=== PATIENT | female | born 1960 | race Asian ===

== ENCOUNTER 2016-10-31 10:34 | Emergency (ER) | payer BC, OTHER ==
[~2016-10-31] VITALS: Ht 162.6 cm; Wt 54.4 kg
[2016-10-31 10:57] VITALS: BP 106/74
--- NOTE | 2016-10-31 10:57 | NUR ---
Patient ambulated to bed 5 with family. RN evaluating patient at bedside.
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
[2016-10-31] MEDS ORDERED: KETOROLAC 30 MG/ML VIAL IM ONE (11:15)
--- NOTE | 2016-10-31 11:20 | NUR ---
PT REFUSED TO TAKE TORADOL;ER NOTIFIED;TORADOL WAS WASTD AT [employer]
--- NOTE | 2016-10-31 11:29 | NUR ---
Patient taken to CT scan/XRAY by tech.
--- NOTE | 2016-10-31 12:08 | NUR ---
PT RESTING ON BED;NO ACUTE DISTRESS NOTED;WILL CONTINUE TO MONITOR PT.
[2016-10-31] MEDS ORDERED: NACL 0.9% 1,000 ML IV ONE (12:20)
--- NOTE | 2016-10-31 12:35 | NUR ---
PT AMBULATED TO THE RESTROOMACCOMPANIED BY HER FRIEND.
[2016-10-31 12:53] LABS: ANION GAP 11.8 (8-16); CALCIUM 8.5 mg/dL (8.5-10.1); CARBON DIOXIDE 27.9 mmol/L (21-32); CREATININE 0.6 mg/dL (0.6-1.3); POTASSIUM 3.7 mmol/L (3.5-5.1)
--- NOTE | 2016-10-31 12:55 | NUR ---
WENT TO CT SCAN ACCOMPANIED BY TECH.
--- NOTE | 2016-10-31 13:49 | NUR ---
PT RESTING ON BED;NO ACUTE DISTRESS NOTED;WILL CONTINUE TO MONITOR PT.
--- NOTE | 2016-10-31 14:26 | NUR ---
PT AMBULATED TO THE RESTROOM
--- NOTE | 2016-10-31 15:34 | NUR ---
PT RESTING ON BED;NO ACUTE DISTRESS NOTED;WILL CONTINUE TO MONITOR PT.
--- NOTE | 2016-10-31 16:11 | NUR ---
US AT BEDSIDE.
--- NOTE | 2016-10-31 16:19 | NUR ---
Dr. Soco Carson evaluating patient at bedside with Dr. Leavitt.
[2016-10-31 16:35] LABS: BASOPHILS # (AUTO) 0.2 K/uL (0.00-0.22); EOSINOPHILS # (AUTO) 0.2 K/uL (0-0.4); HEMATOCRIT 41.5 % (36-48); HEMOGLOBIN 13.6 g/dL (12.0-16.0); LYMPHOCYTES # (AUTO) 1.9 K/uL (2.5-16.5); MEAN CORPUSCULAR HEMOGLOBIN 29 pg (27-31); MEAN CORPUSCULAR HGB CONC 33 g/dL (33-37); MEAN CORPUSCULAR VOLUME 89 fL (80-94); MONOCYTES # (AUTO) 0.3 K/uL (0.8-1.0); NEUTROPHILS # (AUTO) 4.1 K/uL (1.8-7.7); PLATELET COUNT (AUTO) 194 K/uL (140-450); RED BLOOD CELL COUNT(AUTO) 4.68 MIL/uL (4.20-5.40); RED CELL DISTRIBUTION WIDTH 12.4 % (11.6-13.7); WHITE BLOOD COUNT (AUTO) 6.7 K/uL (4.8-10.8)
[2016-10-31 16:47] LABS: INR 0.9 (0.8-1.2); PARTIAL THROMBOPLASTIN TIME 26.4 secs (22-35.6); PROTHROMBIN TIME 9.3 secs (10.8-13.4)
--- NOTE | 2016-10-31 17:29 | NUR ---
Patient discharged with v/s stable. Written and verbal after care instructions given and explained. Patient alert, oriented and verbalized understanding of instructions. [g ED.DCMODE] with [g ED.D/CMODE]. All questions addressed prior to discharge. ID band removed. Patient advised to follow up with PMD. Rx of [] given. Patient educated on indication of medication including possible reaction and side effects. Opportunity to ask questions provided and answered.
[2016-10-31 17:30] VITALS: BP 127/68
== END 2016-10-31 17:29 | disposition home or self-care (01) ==
LOC: MED 10:34
DX: S16.1XXA Strain of muscle, fascia and tendon at neck level, initial encounter (principal); R51 Headache; V43.52XA Car driver injured in collision with other type car in traffic accident, initial encounter; Y93.I9 Activity, other involving external motion; Y92.488 Other paved roadways as the place of occurrence of the external cause; Y99.8 Other external cause status
CPT/HCPCS: 36415; 70450; 70491; 71010; 72125; 80048; 85025; 85610; 85730; 93971; 96360; 96361; 99285; J1885; Q0092; Q9967